=== PATIENT | female | born 1970 | race Caucasian/White ===

== ENCOUNTER → 2017-11-09 | Outpatient (CLI) | payer BC, OTHER ==
[~2017-11-09] MED LIST: ARMOUR THYROID90 M1 PO; ASPIR 8181 MG PO; FLONASE 0.05%50 MCG NASAL; IMITREX 50 MG T50 MG PO; PROTONIX40 M1 PO; PROZAC10 MG PO; RESTASIS1 EACH OPHTHALMIC; SUDAFED PE10 M2 PO; UNICOMPLEX M TA1 TA1 PO; VITAMIN B12-FO1 EAC1 PO; VITAMIN D3400 UNIT PO; XANAX1 MG PO
[2017-11-09 14:21] LABS: ALBUMIN 3.8 g/dL (3.4-5.0); ALKALINE PHOSPHATASE 88 U/L (46-116); CHOLESTEROL 209 mg/dL (<200); DIRECT BILIRUBIN 0.1 mg/dL (<0.1-0.3); HDL CHOLESTEROL 61 mg/dL (>40); LDL CHOLESTEROL 124 mg/dL (<100); SGOT 22 U/L (15-37); SGPT 25 U/L (30-65); TC:HDL 3.4 Ratio (Not establshd); TOTAL BILIRUBIN 0.3 mg/dL (<0.1-1.0); TRIGLYCERIDE 123 mg/dL (<150); VLDL 25 mg/dL (<40)
[2017-11-09 14:22] LABS: SERUM ASSESSMENT Clear
== END ==
LOC: M.LAB 13:42
PROVIDERS: Internal Medicine
DX: E78.5 Hyperlipidemia, unspecified (principal)